=== PATIENT | female | born 1955 | race Asian ===

== ENCOUNTER 2017-03-21 12:42 | Emergency (ER) | payer OTHER ==
[~2017-03-21] VITALS: Ht 170.2 cm; Wt 85.5 kg
[2017-03-21 12:46] VITALS: Ht 170.2 cm; Wt 85.5 kg
--- NOTE | 2017-03-21 13:16 | ERD ---
ER Documentation Chief Complaint Date/Time DATE: 03/21/17 TIME: 13:13 Chief Complaint Complains of right shoulder pain x 3 days MD at bedside for evaluation HPI 61-year-old female otherwise healthy comes emergency department with right- sided shoulder pain that goes to her right breast for the past 4 days. 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 It started in her right axilla radiates to her right breast, achy, intermittent. She has not noticed any breast masses however she states that she is here for examination because she does not have primary care follow- up until July for a mammogram. She reports that her last mammogram was about a year ago and it was normal. She has never had any breast masses or suspicious lesions. She is however a longtime smoker for approximately 30 years 1 pack a week. Family history is negative for BRCA and ovarian cancer. She denies constitutional symptoms. ROS All systems reviewed and are negative except as per history of present illness. Medications Home Meds Active Scripts Naproxen* (Naprosyn*) 500 Mg Tablet, 500 MG PO BID Y for PAIN AND/OR INFLAMMATION, #30 TAB Prov:VALENTIN DEL CASTILLO PA-C 03/21/17 Allergies Allergies: Coded Allergies: chloramphenicol (Verified Allergy, Intermediate, Rash, 03/21/17) PMhx/Soc Medical and Surgical Hx: pt denies Medical Hx, pt denies Surgical Hx Hx Alcohol Use: No Hx Substance Use: No Hx Tobacco Use: No Smoking Status: Never smoker Physical Exam Vitals Vital Signs Date Time Temp Pulse Resp B/P Pulse Ox O2 Delivery O2 Flow Rate FiO2 03/21/17 12:46 97.5 70 20 161/93 97 Physical Exam General: Well-developed, well-nourished. The patient appears in no acute distress. HEENT: Head is normocephalic, atraumatic. No scleral icterus. Neck: Supple. Nontender. Lungs: Clear to auscultation. Normal air movement. Breasts: No axillary lymphadenopathy, no masses, no nipple retraction. No bleeding, no rashes. No tenderness to palpation of the breasts bilaterally. There is axillary tenderness on the left side, there is no warmth or erythema. Heart: Regular rate and rhythm. S1 and S2 are normal. No murmurs, gallops, or rubs. Abdomen: Nondistended. Extremities: No clubbing or cyanosis. Moving extremities x 4. No weakness. Neurologic: Alert and oriented 3. No focal deficits. Normal speech and gait. Skin: Normal turgor. No rash or lesions. Procedures/MDM MDM: 60-year-old female comes in with right-sided shoulder and chest pain, she was concerned about her breasts and she has been overdue for mammogram. Patient is breast examination is unremarkable, breast ultrasound does not show any suspicious masses or lesions. I suspect costochondritis in this case given her history of cleaning that was associated prior to the pain. I will give her anti-inflammatories for pain. She is given a list of community clinics for follow-up to get receive a mammogram. Smoking Cessation Therapy: Pt. was lectured for greater than 3 minutes on the health risks of continued smoking and the benefits of cessation. Patient's blood pressure was elevated (>120/80) but appears stable without evidence of hypertension emergency or urgency. The patient was counseled about the risks of hypertension and urged to pursue outpatient monitoring and therapy within a week with their primary care physician. Departure Diagnosis: Primary Impression: Chest wall pain Condition: VALENTIN Kelly PA-C Mar 21, 2017 13:16
[2017-03-21] MEDS ORDERED: NAPR-260 PO (17:26)
--- NOTE | 2017-03-21 17:33 | RADRPT ---
PROCEDURE: Ultrasound right breast CLINICAL INDICATION: Right breast pain TECHNIQUE: Real time sonographic imaging of the right breast is performed in an [id number] m zane using both the radial and anti - radial approaches. A total of 45 beaver scale images are submi tted to the PACS for review. COMPARISON: None available FINDINGS: The of breast parenchyma is homogeneous in appearance. There is no evidence of fluid collection, so lid or cystic mass. The area of the axilla is unremarkable. No lymph nodes are identified. RPTAT:HJJR IMPRESSION: 1. Unremarkable ultrasound of the right breast without findings to explain the patient's provided h istory. 2. ACR BIRADS category: 1 (negative) 3. Recommendation: Follow-up imaging should be based upon continued clinical assessment. Otherwise , the patient may return to annual surveillance screening mammography protocol. Physician Zuly Date Time Electronically viewed and signed by Physician Zuly on 03/21/2017 17:32 /
[2017-03-21] MEDS ORDERED: IBUP-1542 PO (17:36)
[2017-03-21 17:40] VITALS: BP 128/77; PULSE 75; RESP 19; TEMP 98.3
== END 2017-03-21 17:41 | disposition home or self-care (01) ==
LOC: FTE 12:42
DX: R07.89 Other chest pain (principal)
CPT/HCPCS: 76642